=== PATIENT | male | born 1995 | race Two or more races ===

== ENCOUNTER 2020-08-26 02:52 | Emergency (ER) | payer SELFPAY ==
[~2020-08-26] VITALS: Ht 175.3 cm; Wt 78.0 kg
[2020-08-26 03:03] VITALS: BP 130/76
== END 2020-08-26 05:40 | disposition left against medical advice (07) ==
LOC: ER 02:56
DX: R68.83 Chills (without fever) (principal); Z53.21 Procedure and treatment not carried out due to patient leaving prior to being seen by health care provider